=== PATIENT | female | born 1985 | race Caucasian/White ===

== ENCOUNTER 2018-03-28 16:00 | Emergency (ER) | payer BC, OTHER ==
--- NOTE | 2018-03-28 16:40 | EDM.PDOC ---
ED HPI GENERAL MEDICAL PROBLEM - General Chief Complaint: Upper Extremity Injury/Pain Stated Complaint: Right wrist injury/pain Time Seen by Provider: 03/28/18 16:24 Source of Information: Reports: Patient History Limitations: Reports: No Limitations - History of Present Illness INITIAL COMMENTS - FREE TEXT/NARRATIVE: Patient was walking in grass and stepped in a depression which caused her to fall. Reports having some initial pain in right wrist but no other injuries. Pain then got worse over time and she then came in to be evaluated. No initial numbness/tingling. No skin injuries. Once she arrived in the ER she mentioned that all fingertips were a bit tingly in sensation. Patient denies other injuries. Right Wrist Pain Score (Numeric/FACES): 4 - Related Data Allergies Allergy/AdvReac Type Severity Reaction Status Date / Time No Known Allergies Allergy Verified 03/28/18 16:02 Home Meds: Home Meds Aspirin [Ecotrin] 81 mg PO DAILY 03/28/18 [History] NIFEdipine [Procardia Xl] 60 mg PO DAILY 03/28/18 [History] hydrOXYzine pamoate [Vistaril] 25 mg PO DAILY 03/28/18 [History] lamoTRIgine [Lamictal] 150 mg PO DAILY 03/28/18 [History] Past Medical History - History Comment History Comment: Raynaud's Dz. Review of Systems - Review of Systems Review Of Systems: ROS reveals no pertinent complaints other than HPI. ED EXAM, GENERAL - Physical Exam Exam: See Below Exam Limited By: No Limitations General Appearance: Alert, WD/WN, No Apparent Distress Eye Exam: Bilateral Eye: EOMI, PERRL Head: Atraumatic, Normocephalic Neck: Supple Respiratory/Chest: No Respiratory Distress Peripheral Pulses: 2+: Radial (R) (Female) Exam: Deferred Rectal (Female) Exam: Deferred Extremities: Normal Capillary Refill, Other (Mild diffuse tenderness with palpation over distal medial radius on right. Hand/wrist bones/ulna do not appear to be tender. Minimal swelling, no deformity. Skin intact. Able to make fist. Able to move wrist up/down/[id number]. Fingers very slightly larger on right than left. ) Neurological: Alert, Oriented, Normal Cognition, Normal Gait Psychiatric: Normal Affect, Normal Mood Skin Exam: Warm, Dry, Intact, Normal Color, Other (Both hands feel equal in temperature) Course - Orders/Labs/Meds Orders: Active Orders 24 hr Category Date Time Status Wrist Comp Min 3V Rt [CR] Stat Exams 03/28/18 16:13 Taken - Radiology Interpretation Free Text/Narrative:: No obvious fracture identified on Xray - Re-Assessments/Exams Free Text/Narrative Re-Assessment/Exam: 03/28/18 16:57 Will splint for comfort. RICE. Tylenol or ibuprofen or Aleve for pain. Will contact patient if Radiology has concern for fracture. To follow up at Ortho walk-in Friday or Friday if discomfort is not improving. Departure - Departure Time of Disposition: 16:34 Disposition: Home, Self-Care 01 Condition: Good Clinical Impression: Right wrist injury Qualifiers: Encounter type: initial encounter Qualified Code(s): S69.91XA - Unspecified injury of right wrist, hand and finger(s), initial encounter Raynaud disease Qualifiers: Raynaud?s-associated gangrene presence: without gangrene Qualified Code(s): I73.00 - Raynaud's syndrome without gangrene - Discharge Information *PRESCRIPTION DRUG MONITORING PROGRAM REVIEWED*: Not Applicable *COPY OF PRESCRIPTION DRUG MONITORING REPORT IN PATIENT [place]UD[place]: Not Applicable Instructions: Wrist Sprain, Adult Referrals: PCP,None [Primary Care Provider] - Forms: ED Department Discharge Additional Instructions: Wear splint for comfort and protection. Ice. Elevate. Ibuprofen or Aleve or Tylenol for pain as discussed. If Radiology notes a fracture we will notify you by phone. If pain has not improved within 2-3 days please follow up at Ortho walk-in clinic at [place]. - My Orders Last 24 Hours: My Active Orders 03/28/18 16:13 Wrist Comp Min 3V Rt [CR] Stat - Assessment/Plan Last 24 Hours: My Active Orders 03/28/18 16:13 Wrist Comp Min 3V Rt [CR] Stat
== END 2018-03-28 16:50 | disposition home or self-care (01) ==
LOC: LL.ED 16:00
DX: S69.91XA Unspecified injury of right wrist, hand and finger(s), initial encounter (principal); I73.00 Raynaud's syndrome without gangrene; Z79.82 Long term (current) use of aspirin; Z79.899 Other long term (current) drug therapy; W18.30XA Fall on same level, unspecified, initial encounter
CPT/HCPCS: 73110-RT; 99283